=== PATIENT | female | born 1995 | race Caucasian/White ===

== ENCOUNTER 2017-12-06 14:05 | Emergency (ER) | payer OTHER ==
[2017-12-06] MEDS ORDERED: Ondansetron ODT 4 MG TAB ONE (15:08)
[2017-12-06] MEDS ORDERED: HYDROcodone/Acetaminophen 10/325 mg Tablet ONE (15:08)
== END 2017-12-06 15:40 | disposition home or self-care (01) ==
LOC: ERS 14:05
DX: K03.81 Cracked tooth (principal)
CPT/HCPCS: 99282; Q0162